=== PATIENT | female | born 1995 | race African-American/Black ===

== ENCOUNTER 2016-09-14 13:17 | Emergency (ER) | payer MEDICAID, OTHER ==
[~2016-09-14] VITALS: Ht 160 cm; Wt 120.0 kg
[2016-09-14 13:19] VITALS: BP 119/98; PULSE 85; RESP 15; TEMP 98; O2SAT 99
--- NOTE | 2016-09-14 13:49 | PD ---
HPI Chief Complaint: Laceration/Skin Injury Time Seen by Provider: 13:48 Travel History International Travel<30 days: No Contact w/Intl Traveler<30days: No Traveled to known affect area: No History of Present Illness HPI 21-year-old female presents to the emergency Department with complaint of a laceration to her right thumb from a meatman obtained while at work today. Denies paresthesias, loss of sensation, decreased range of motion, decreased strength to the affected finger. Denies fever, chills, nausea, vomiting. Does not know she is up-to-date on her tetanus vaccination. Has not taken any medications to alleviate her symptoms. Has applied pressure to control bleeding. Band-Aids in place. No known allergies. History of asthma. No other modifying factors or associated signs and symptoms. PFSH Past Medical History Asthma: Yes Anxiety: Yes Diminished Hearing: No Headaches: Yes Reproductive: Yes (STD ) Respiratory: Yes (asthma) Immunizations Current: Yes ?: Not LMP: IRREGULAR : 0 Social History Alcohol Use: No Tobacco Use: No Substance Use: No Allergies-Medications (Allergen,Severity, Reaction): Coded Allergies: No Known Allergies (Unverified , 09/14/16) Reported Meds & Prescriptions Reported Meds & Active Scripts Active No Active Prescriptions or Reported Medications Review of Systems Except as stated in HPI: all other systems reviewed are Neg Physical Exam Narrative GENERAL: Well-nourished, well-developed female patient, in no acute distress SKIN: Warm and dry. Anterior aspect of the right thumb with approximately 1 cm superficial cut; without erythema, edema; minimal amount of bright red drainage. Finger with full range of motion, sensory intact, less than 3 second cap refill, good opposition, and full range of motion. Right upper extremity supple and non-tense with 2+ radial pulse and sensory intact without erythema or edema. HEAD: Atraumatic. Normocephalic. EYES: Pupils equal and round. No scleral icterus. No injection or drainage. ENT: Mucosa pink and moist. Airway patent. NECK: Trachea midline. CARDIOVASCULAR: Regular rate. RESPIRATORY: No accessory muscle use. GASTROINTESTINAL: Obese. MUSCULOSKELETAL: No obvious deformities. No clubbing. No cyanosis. No edema. NEUROLOGICAL: Awake and alert. Oriented 3. No obvious cranial nerve deficits. Motor grossly within normal limits. Normal speech. PSYCHIATRIC: Appropriate mood and affect; insight and judgment normal. Data Data Last Documented VS Vital Signs Date Time Temp Pulse Resp B/P Pulse Ox O2 Delivery O2 Flow Rate FiO2 09/14/16 13:19 98.0 85 15 119/98 99 Orders Ibuprofen (Motrin) (09/14/16 14:00) Wound Care (09/14/16 13:50) MDM Medical Decision Making Medical Screen Exam Complete: Yes Emergency Medical Condition: Yes Medical Record Reviewed: Yes Differential Diagnosis Laceration, cut, abrasion Narrative Course 21-year-old female physical exam consistent with a superficial cut to the distal aspect of the right thumb. Tetanus updated in the ER. Cut cleaned with normal saline and Dermabond applied. Patient tolerated well. Ibuprofen administered in the ER. Patient is medically cleared and stable for discharge. Discussed reasons to return to the emergency department. Instructed patient to follow up with primary care provider. Patient agrees with treatment plan. The patients vital signs are stable and the patient is stable for outpatient follow-up and treatment. Patient discharged home, stable and in no acute distress. Procedures Procedure Narrative LACERATION LOCATION: Distal, anterior aspect of the right thumb LENGTH: 1 cm Dermabond used for closure REPAIR: The area of the laceration was prepped with normal saline. The wound was copiously irrigated and explored without evidence of foreign body, tendon injury or neurovascular injury. The wound was closed using Dermabond. This was a single layer repair. A sterile dressing was applied. The patient was advised to keep the dressing clean and dry. Patient tolerated the procedure well. Diagnosis Primary Impression: Cut of finger Referrals: Primary Care Physician Patient Instructions: Finger Laceration (ED), General Instructions Departure Forms: Tests/Procedures, Work Release Enter return to work date: Sep 15, 2016 Additional Instructions: Keep area clean and dry Ice pack to area as needed to decrease pain Ibuprofen or Tylenol as directed and as needed for pain and inflammation Follow-up with primary care provider Return to the emergency department immediately with worsening of symptoms Med/Other Pt SpecificInfo: Prescription(s) given Scripts No Active Prescriptions or Reported Meds Disposition: 01 DISCHARGE HOME Condition: Stable Teresa Reyes Sep 14, 2016 13:49
[2016-09-14] MEDS ORDERED: IBUPROFEN 800 MG TAB PO ONE (14:00)
[2016-09-14] MEDS ORDERED: TETANUS/DIPHTHERIA TOXOID ADULT 0.5 ML VIAL IM ONE (14:15)
== END 2016-09-14 14:28 | disposition home or self-care (01) ==
LOC: NEPB 13:17
DX: S61.011A Laceration without foreign body of right thumb without damage to nail, initial encounter (principal); Z23 Encounter for immunization; W31.82XA Contact with other commercial machinery, initial encounter; Y93.G1 Activity, food preparation and clean up; Y92.511 Restaurant or cafe as the place of occurrence of the external cause
CPT/HCPCS: 12001; 90471; 90714

== ENCOUNTER 2016-09-25 14:59 | Emergency (ER) | payer MEDICAID, OTHER ==
[~2016-09-25] VITALS: Ht 160 cm; Wt 110.0 kg
[2016-09-25 15:01] VITALS: BP 105/67; PULSE 108; RESP 14; TEMP 98.4; O2SAT 100
== END 2016-09-25 22:00 | disposition left against medical advice (07) ==
LOC: NED 14:59
DX: Z53.21 Procedure and treatment not carried out due to patient leaving prior to being seen by health care provider (principal)
CPT/HCPCS: 99281